=== PATIENT | male | born 1930 | race Caucasian/White ===

== ENCOUNTER 2018-07-17 08:11 | Emergency (ER) | payer MEDICARE | END 2018-07-17 12:20 | disposition home or self-care (01) | LOC: E/R 08:11 | DX: S01.81XA Laceration without foreign body of other part of head, initial encounter (principal); W18.39XA Other fall on same level, initial encounter; Y92.9 Unspecified place or not applicable | CPT/HCPCS: 12011; 70450; 72125; 99284-25 ==